=== PATIENT | male | born 1980 | race Caucasian/White ===

== ENCOUNTER 2020-07-19 15:01 | Emergency (ER) | payer OTHER ==
[2020-07-19] MEDS ORDERED: Lidocaine 1% 20 ML MDV INJECT ONE (15:41)
[2020-07-19] MEDS ORDERED: Bacitracin Oint 1 GM U/D Packet TOP ONE (15:43)
--- NOTE | 2020-07-19 16:15 | EDM.PDOC ---
ED HPI GENERAL MEDICAL PROBLEM - General Chief Complaint: Skin Complaint Stated Complaint: RIGHT LITTLE FINGER FISH HOOK Time Seen by Provider: 07/19/20 16:00 Source of Information: Reports: Patient, RN, RN Notes Reviewed History Limitations: Reports: No Limitations - History of Present Illness INITIAL COMMENTS - FREE TEXT/NARRATIVE: just prior to arrival pt embedded a fish hook in his right 5th digit. He cut off polly from the lure in an attempt to remove the hook himself without success. He states he had a tetanus shot a couple of years ago due to injury at work. The fish hook was new. Onset: Today Onset Date: 07/19/20 Onset Time: 13:30 Duration: Minutes: Location: Reports: Upper Extremity, Right (5th digit) Quality: Reports: Ache Severity: Mild Improves with: Reports: Immobilization Worsens with: Reports: Movement Context: Reports: Trauma Associated Symptoms: Reports: No Other Symptoms Treatments [employer]ICE: Reports: Other (see below) (attempted to remove prior to arrival) Right Finger-Little Pain Score (Numeric/FACES): 1 - Related Data Allergies Allergy/AdvReac Type Severity Reaction Status Date / Time No Known Allergies Allergy Verified 07/19/20 15:11 Home Meds: Home Meds Dexlansoprazole [Dexilant] 30 mg PO DAILY 07/19/20 [History] Past Medical History HEENT History: Reports: Impaired Vision Gastrointestinal History: Reports: GERD Psychiatric History: Reports: Panic Attack - Past Surgical History Head Surgeries/Procedures: Reports: None HEENT Surgical History: Reports: Tonsillectomy GI Surgical History: Reports: None Dermatological Surgical History: Reports: None Social & Family History - Tobacco Use Smoking Status *Q: Former Smoker Used Tobacco, but Quit: Yes Month/Year Tobacco Last Used: 12/2017 Second Hand Smoke Exposure: No - Caffeine Use Caffeine Use: Reports: Coffee - Recreational Drug Use Recreational Drug Use: No ED ROS GENERAL - Review of Systems Review Of Systems: Comprehensive ROS is negative, except as noted in HPI. ED EXAM, SKIN/RASH Exam: See Below Text/Narrative:: remainder of a cut polly in right 5th digit distal pad of finger Exam Limited By: No Limitations General Appearance: Alert, WD/WN, No Apparent Distress Extremities: Normal Range of Motion, Normal Capillary Refill, Redness. No: Non- Tender (left 5th digit with entry and small exit point where polly is lodged) Neurological: Alert, Oriented, Normal Cognition Skin: Warm, Dry, Normal Color, Wound/Incision (as described above) Location, Skin: Upper Extremity, Right Characteristics: Other ([[id number]) Associated features: Swelling Course - Vital Signs Last Recorded V/S: Last Vital Signs Temp 36.6 C 07/19/20 15:19 Pulse 76 07/19/20 15:19 Resp 18 07/19/20 15:19 BP 133/83 07/19/20 15:19 Pulse Ox 96 07/19/20 15:19 - Orders/Labs/Meds Meds: Medications Discontinued Medications Generic Name Dose Route Start Last Admin Trade Name Michelle PRN Reason Stop Dose Admin Bacitracin 1 dose 07/19/20 15:43 07/19/20 15:47 Bacitracin Oint 1 Gm TOP 07/19/20 15:44 1 dose ONETIME ONE Administration Lidocaine HCl 20 ml 07/19/20 15:41 07/19/20 15:48 Xylocaine 1% INJECT 07/19/20 15:42 20 ml ONETIME ONE Administration - Re-Assessments/Exams Free Text/Narrative Re-Assessment/Exam: 07/19/20 16:38 Pt with no known allergies. Pt verbally consented to removal of barbed hook. Instilled small amount of lidocaine 1% plain at site of polly entry to numb finger. Area cleaned with alcohol. Barbed hook removed pushing hook through current entry exit path. Pt tolerated procedure without difficulty. Puncture points cleaned and covered with topical bacitracin and bandage. Instructed to keep area clean and dry while avoiding samuels waster until puncture sites scabbed over. Departure - Departure Time of Disposition: 16:21 Disposition: Home, Self-Care 01 Condition: Good Clinical Impression: Fish hook injury of finger of right hand - Discharge Information *PRESCRIPTION DRUG MONITORING PROGRAM REVIEWED*: Not Applicable *COPY OF PRESCRIPTION DRUG MONITORING REPORT IN PATIENT MYRA: Not Applicable Referrals: PCP,None [Primary Care Provider] - Forms: ED Department Discharge Additional Instructions: keep area clean and dry until puncture wounds scabbed over. Report signs and symptoms of infection. Pt tetanus unknown He states he had one recently when he had an injury at work. Sepsis Event Note (ED) - Evaluation Sepsis Screening Result: No Definite Risk - Focused Exam Vital Signs: Vital Signs Temp Pulse Resp BP Pulse Ox 07/19/20 15:19 36.6 C 76 18 133/83 96 07/19/20 15:14 36.6 C 76 18 133/83 96
== END 2020-07-19 16:21 | disposition home or self-care (01) ==
LOC: JP.ED 15:01
DX: S60.456A Superficial foreign body of right little finger, initial encounter (principal); K21.9 Gastro-esophageal reflux disease without esophagitis; Z79.899 Other long term (current) drug therapy; Z87.891 Personal history of nicotine dependence; W45.8XXA Other foreign body or object entering through skin, initial encounter
CPT/HCPCS: 99283; J2001